=== PATIENT | female | born 1985 | race Two or more races ===

== ENCOUNTER 2022-10-22 22:04 | Emergency (ER) | payer SELFPAY ==
[~2022-10-22] VITALS: Ht 165.1 cm; Wt 140.0 kg
[2022-10-22 22:25] VITALS: BP 179/95
== END 2022-10-22 23:00 | disposition left against medical advice (07) ==
LOC: ER 22:04
DX: Z53.21 Procedure and treatment not carried out due to patient leaving prior to being seen by health care provider (principal)